=== PATIENT | male | born 1985 | race Caucasian/White ===

== ENCOUNTER 2022-05-17 14:44 | Emergency (ER) | payer OTHER ==
[2022-05-17] MEDS ORDERED: cefTRIAXone 2 GM in Sodium Chloride 0.9% 100 ML IV ONE (15:41)
[2022-05-17] MEDS ORDERED: Dexamethasone 10 MG/ML SDV IVPUSH ONE (15:42)
[2022-05-17] MEDS ORDERED: Sodium Chloride 0.9% 1,000 ML IV ONE (15:42)
[2022-05-17] MEDS ORDERED: Morphine 4 MG/ML Syringe IVPUSH ONE ×2 (17:29→18:12)
[2022-05-17] MEDS ORDERED: Ondansetron 4 MG in Sodium Chloride 0.9% 50 ML IV ONE (18:12)
== END 2022-05-17 18:30 | disposition home or self-care (01) ==
LOC: JD.ED 14:44
DX: J36 Peritonsillar abscess (principal)
CPT/HCPCS: 36415; 80053; 85025; 86140; 87040; 96361; 96365; 96367; 96375; 96376; 99283; J0696; J1100; J2270; J2405; J7030; 99282

== ENCOUNTER 2024-06-08 19:17 | Emergency (ER) | payer OTHER ==
[2024-06-08] MEDS: Lidocaine 1% 10 ML MDV INJECT ONE (20:19)
[2024-06-08] MEDS: Diphtheria,Pertussis(Acell),Tetanus Vaccine 0.5 ML Syringe IM ONE (20:20)
== END 2024-06-08 20:55 | disposition home or self-care (01) ==
LOC: JD.ED 19:17
DX: S61.411A Laceration without foreign body of right hand, initial encounter (principal); Z86.16 Personal history of COVID-19; W26.8XXA Contact with other sharp object(s), not elsewhere classified, initial encounter; Z23 Encounter for immunization
CPT/HCPCS: 12002; 90471; 90715; 99282; J2003